=== PATIENT | female | born 1995 | race Caucasian/White ===

== ENCOUNTER 2016-05-11 22:02 | Emergency (ER) | payer BC ==
[~2016-05-11] VITALS: Ht 154.9 cm; Wt 65.9 kg
[2016-05-12 00:09] VITALS: BP 111/62
--- NOTE | 2016-05-12 07:38 | Diagnostic Imaging Report ---
EXAMINATION: Paranasal sinus radiographs, 3 views. COMPARISON: None. HISTORY: 20-year-old female, headache. FINDINGS: There is no identified air-fluid level within the paranasal sinuses. IMPRESSION: No identified air-fluid level within the paranasal sinuses to specifically suggest acute sinusitis. Dictated by: Dictated on workstation # [id number]
== END 2016-05-12 00:13 | disposition home or self-care (01) ==
LOC: ED 22:07
DX: J30.9 Allergic rhinitis, unspecified (principal); R51 Headache; Z87.891 Personal history of nicotine dependence
CPT/HCPCS: 70220; 99282; 99283